=== PATIENT | female | born 1960 | race Caucasian/White ===

== ENCOUNTER 2020-06-13 13:26 | Emergency (ER) | payer OTHER ==
[~2020-06-13] VITALS: Ht 170.2 cm; Wt 73.9 kg
[2020-06-13 13:50] LABS: ABSOLUTE BASOPHILS 0.1 thou/uL (0.0-0.2); ABSOLUTE EOSINOPHILS 0.2 thou/uL (0.0-0.7); ABSOLUTE LYMPHOCYTES 1.8 thou/uL (0.8-5.3); ABSOLUTE MONOCYTES 0.5 thou/uL (0.0-1.2); ABSOLUTE NEUTROPHILS 3.7 thou/uL (1.6-8.1); EOSINOPHILS 2.7 %; HEMATOCRIT 40.2 % (37.0-47.0); LYMPHOCYTES 29.1 %; MCH 26.9 pg (26.0-34.0); MCHC 32.2 g/dL (28.0-37.0); MCV 83.4 fL (80.0-100.0); MONOCYTES 7.4 %; MPV 7.8 fl. (7.2-11.1); NUCLEATED RBCS 0 /100WBC; PLATELET COUNT* 237 thou/uL (150-400); POLYS 59.8 %; RBC 4.82 mil/uL (4.20-5.00); RDW-CV 14.8 % (10.5-14.5); WBC 6.2 thou/uL (4.0-11.0)
[2020-06-13 13:58] LABS: CALCIUM 8.8 mg/dL (8.5-10.1); CREATININE 0.8 mg/dL (0.6-1.3); POTASSIUM 3.8 mmol/L (3.5-5.1)
[2020-06-13 14:02] LABS: APTT 24.5 Seconds (25.0-31.3); INR 0.9; PROTIME 9.9 Seconds (9.20-11.50)
[2020-06-13 14:03] LABS: ALBUMIN 3.5 g/dL (3.4-5.0); TOTAL BILIRUBIN 0.4 mg/dL (<0.1-1.0); TOTAL PROTEIN 7.1 g/dL (6.4-8.2)
[2020-06-13 14:47] VITALS: BP 145/65
--- NOTE | 2020-06-15 17:29 | EKG ---
[place] [address] ELECTROCARDIOGRAM REPORT Name: CHAZ DYE Room: [facility]#: [id number] Admission: 06/13/20 Attend Phys: Discharge: 06/13/20 Date of : 56 Date of Service: 06/13/20 1336 Report #: [id number] THIS REPORT FOR: //name// [facility] ED Test Date: 2020-06-13 Test Time: 13:36:05 Pat Name: CHAZ DYE Department: Room: Gender: [employer] Specialist: : 1960 Requested By: Brandon Tran Order Number: [id number] MD: Luis Armando Puckett Measurements Intervals [place] Rate: 58 P: -14 ID: 164 QRS: -16 QRSD: 85 T: 18 QT: 442 QTc: 435 Interpretive Statements Sinus rhythm Borderline left axis deviation No previous ECG available for comparison Electronically Signed On 06-15-2020 17:29:43 CDT by Luis Armando Puckett [email or web address] <ELECTRONICALLY SIGNED> By: Luis Armando Puckett MD, [facility] 06/15/20 1729 35 35 Luis Armando Puckett MD, FAC /EPI
== END 2020-06-13 14:48 | disposition home or self-care (01) ==
LOC: M.ERS 13:26
PROVIDERS: Family Medicine
DX: R51.9 Headache, unspecified (principal); R47.01 Aphasia

== ENCOUNTER → 2020-06-23 | Outpatient (CLI) | payer OTHER ==
[2020-06-23 09:14] LABS: CREATININE 0.7 mg/dL (0.6-1.3)
== END ==
LOC: M.MRI 07:07
PROVIDERS: ATTEND Psychiatry & Neurology Neuromuscular Medicine
DX: M27.40 Unspecified cyst of jaw (principal); G43.909 Migraine, unspecified, not intractable, without status migrainosus

== ENCOUNTER 2020-06-25 22:52 | Emergency (ER) | payer OTHER ==
[~2020-06-25] VITALS: Ht 170.2 cm; Wt 72.6 kg
[2020-06-25 23:16] LABS: ABSOLUTE EOSINOPHILS 0.2 thou/uL (0.0-0.7); ABSOLUTE LYMPHOCYTES 1.4 thou/uL (0.8-5.3); ABSOLUTE MONOCYTES 0.4 thou/uL (0.0-1.2); ABSOLUTE NEUTROPHILS 5.3 thou/uL (1.6-8.1); BASOPHILS 0.7 %; EOSINOPHILS 2.1 %; HEMOGLOBIN 13.2 gm/dL (12.0-15.0); LYMPHOCYTES 19.4 %; MCH 26.7 pg (26.0-34.0); MCHC 32.2 g/dL (28.0-37.0); MCV 82.9 fL (80.0-100.0); MONOCYTES 5.7 %; MPV 8.3 fl. (7.2-11.1); NUCLEATED RBCS 0 /100WBC; PLATELET COUNT* 267 thou/uL (150-400); POLYS 72.1 %; RBC 4.95 mil/uL (4.20-5.00); RDW-CV 14.5 % (10.5-14.5); WBC 7.3 thou/uL (4.0-11.0)
[2020-06-25 23:27] LABS: INR 0.9; PROTIME 10.1 Seconds (9.20-11.50)
[2020-06-25 23:42] LABS: ALBUMIN 3.9 g/dL (3.4-5.0); CALCIUM 9.4 mg/dL (8.5-10.1); CREATININE 0.8 mg/dL (0.6-1.3); MAGNESIUM 2.2 mg/dL (1.8-2.4); TOTAL BILIRUBIN 0.4 mg/dL (<0.1-1.0); TOTAL PROTEIN 7.9 g/dL (6.4-8.2)
[2020-06-26 02:22] LABS: URINE BILIRUBIN NEGATIVE (Negative); URINE BLOOD NEGATIVE (Negative); URINE CLARITY CLEAR; URINE COLOR YELLOW; URINE GLUCOSE-RANDOM NEGATIVE (Negative); URINE KETONES 2+ (Negative); URINE LEUKOCYTES-REFLEX NEGATIVE (Negative); URINE NITRITE-REFLEX NEGATIVE (Negative); URINE PROTEIN NEGATIVE (Negative); URINE SPECIFIC GRAVITY 1.015 (1.005-1.030); URINE UROBILINOGEN 0.2 E.U./dl (0.2-1.0)
[2020-06-26 02:29] VITALS: BP 146/64
--- NOTE | 2020-06-26 10:00 | EKG ---
[place] [address] ELECTROCARDIOGRAM REPORT Name: MARNIECARMENZALUKE Villalba Room: [facility]#: [id number] Admission: 06/25/20 Attend Phys: Discharge: 06/26/20 Date of : 56 Date of Service: 06/25/202256 Report #: [id number] THIS REPORT FOR: //name// [facility] ED Test Date: 2020-06-25 Test Time: 22:57:19 Pat Name: CHAZ DYE Department: Room: Gender: F Java Software Developer: MARIO : 1960 Requested By: Yissel Nelson Order Number: [id number] MD: Dion Phoenix Measurements Intervals [place] Rate: 66 P: 43 MN: 160 QRS: -18 QRSD: 86 T: 1 QT: 420 QTc: 441 Interpretive Statements Sinus rhythm Borderline left axis deviation Low voltage, precordial leads Borderline T abnormalities, anterior leads Compared to ECG 06/13/2020 13:36:05 Low QRS voltage now present T-wave abnormality now present Electronically Signed On 06-26-2020 10:00:01 CDT by Dion Phoenix [email or web address] <ELECTRONICALLY SIGNED> By: Dion Phoenix MD, [facility] 06/26/20 1000 [id number] Dion Phoenix MD, [facility] /EPI
== END 2020-06-26 02:30 | disposition home or self-care (01) ==
LOC: M.ERS 22:52
PROVIDERS: Emergency Medicine
DX: K29.80 Duodenitis without bleeding (principal); Z91.048 Other nonmedicinal substance allergy status